=== PATIENT | male | born 1980 | race Caucasian/White ===

== ENCOUNTER 2022-08-08 12:39 | Inpatient (IN) | payer BC ==
[2022-08-08] MEDS ORDERED: HYDROMORPHONE HCL 1 MG/ML INJ ONE ×2 (13:24→15:54)
[2022-08-08] MEDS ORDERED: METHYLPREDNISOLONE 125 MG INJ ONE (13:24)
[2022-08-08] MEDS ORDERED: IPRATROPIUM BROM 0.5MG/2.5ML ONE ×2 (13:24→16:24)
[2022-08-08] MEDS ORDERED: ALBUTEROL 2.5 MG/3 ML NEB SOL ONE ×2 (13:24→16:24)
[2022-08-08] MEDS ORDERED: ONDANSETRON 4 MG/2 ML VIAL ONE (13:24)
[2022-08-08 13:33] LABS: Absolute Lymphocytes (CBC) 1.1 K/uL (0.7-4.9); Hematocrit 41.6 % (39.6-49.0); Lymphocytes % 9.2 % (15.3-44.8); MCV 92.8 fL (80-100); MPV 7.9 fL (7.6-11.3); RBC Red Blood Cell Count 4.48 M/uL (4.33-5.43)
[2022-08-08] MEDS ORDERED: ACETAMINOPHEN 325 MG TABLET ONE (13:40)
[2022-08-08 14:23] LABS: SARS-COV-2 RT PCR NEGATIVE (NEGATIVE)
[2022-08-08 14:26] LABS: Potassium 3.1 mmol/L (3.5-5.1); Troponin High Sensitivity 6.9 pg/mL (<58.9)
--- NOTE | 2022-08-08 16:05 | RAD REPORT ---
EXAM DESCRIPTION: CT - Chest For Pe Angio - 08/08/2022 3:04 pm CLINICAL HISTORY: chest pain COMPARISON: No comparisons TECHNIQUE: Dynamically enhanced 3 mm thick images of the chest were obtained during administration o f approximately 150mL Isovue 370 IV contrast. Coronal and oblique MIP reconstruction images were gene rated and reviewed. Exam utilizes a protocol to evaluate the pulmonary arterial tree. All CT scans are performed using dose optimization technique as appropriate and may include automated exposure control or mA/KV adjustment according to patient size. FINDINGS: Pulmonary arterial tree enhance but is not optimal but felt to be sufficient for diagnosti c purposes. No pulmonary emboli identified and none suspected. The aorta as imaged shows no acute or suspicious finding. No pericardial thickening or effusion. Patient has very extensive focal and confluent nodular opacities in a bibasilar distribution. There i s minimal nodular air opacification in the base of the right lower lobe and lingula of the left upper lobe. Middle lobe is moderately involved. No pleural effusion or pleural thickening. Patient has numerous mediastinal and hilar lymph nodes. No chest wall masses or abnormal axillary lym phadenopathy. IMPRESSION: No pulmonary emboli identifiable. Extensive predominantly lower lobe nodular lung parenchymal opacities with extensive mediastinal and hilar lymphadenopathy. Pattern would be consistent with sarcoidosis and needs correlation with clinic al findings. CT findings would be atypical for a community-acquired pneumonia.
--- NOTE | 2022-08-08 16:14 | EDPHYS ---
Physician Documentation [facility] Name: Raghu Rodriguez Age: 41 yrs Sex: Male : 1980 Arrival Date: 08/08/2022 Time: 12:43 Bed 18 Private MD: ED Physician Antoinette Duckworth HPI: 08/08 14:06 This 41 yrs old Male presents to ER via Ambulatory with complaints of Chest/Neck Pain sp3 when Breathing, Arm Pain. 14:06 11-year-old male with history of asthma presents to the ED with chief complaint sp3 right-sided chest pain, difficulty breathing, pain on breathing and continued wheezing. Patient states that he was in [place] proximately 1 week ago where he states he had a chest x-ray and multiple swabs done checking for COVID and flu which were negative and he was discharged home on oral Ellers and steroids. Patient is continued to not improve and according to him has gotten worse and now presents to the ED here. In particular the chest pain on the right side is what is hurting him. He also today has a fever of 101.1 he denies any abdominal pain, neck pain, headache, nausea, vomiting, diarrhea, rash, extremity pain, neurological symptoms, no sick contacts, travel history other than in local [place] or any other concerning findings on ROS at this time.. Historical: - Allergies: 12:49 No Known Allergies; hb - PMHx: 12:49 Asthma; hb - PSHx: 12:49 Pacemaker; hb - Immunization history:: Adult Immunizations up to date, Client reports receiving the 2nd dose of the Covid vaccine. - Social history:: Smoking status: Patient denies any tobacco usage or history of. ROS: 14:08 Eyes: Negative for injury, pain, redness, and discharge, ENT: Negative for injury, sp3 pain, and discharge, Neck: Negative for injury, pain, and swelling, Abdomen/GI: Negative for abdominal pain, nausea, vomiting, diarrhea, and constipation, Back: Negative for injury and pain, MS/Extremity: Negative for injury and deformity, Skin: Negative for injury, rash, and discoloration, Neuro: Negative for headache, weakness, numbness, tingling, and seizure. 14:08 All other systems are negative. Exam: 14:05 ECG was reviewed by the Attending Physician. KG demonstrates normal sinus rhythm 97 bpm sp3 with normal intervals, normal QRS, normal axis, nonspecific diffuse ST/T changes without evidence of acute ischemia. Vital Signs: 12:47 BP 124 / 65; Pulse 113; Resp 24; Temp 101.1(TE); Pulse Ox 88% on R/A; Weight 77.11 kg; hb Height 5 ft. 11 in. (180.34 cm); Pain 10/10; 13:00 BP 121 / 72; Pulse 109; Resp 20; Pulse Ox 95% on 2 lpm NC; kb3 13:00 BP 127 / 73; Pulse 83; Resp 20; Pulse Ox 96% on 1 lpm NC; kb3 14:30 BP 127 / 73; Pulse 83; Resp 20; Temp 98.9; Pulse Ox 96% on R/A; kb3 15:28 BP 117 / 59; Pulse 91; Resp 20; Pulse Ox 93% on R/A; kb3 16:00 BP 109 / 70; Pulse 79; Resp 20; Pulse Ox 95% ; kb3 18:00 BP 116 / 73; Pulse 77; Resp 20; Pulse Ox 97% ; kb3 12:47 Body Mass Index 23.71 (77.11 kg, 180.34 cm) hb MDM: 13:03 Patient medically screened. sp3 14:08 Data reviewed: vital signs, nurses notes. ED course: 41-year-old male with right-sided sp3 chest pain and asthma symptoms. He currently is wheezing along with an active cough as well. We will obtain CT scan of the chest looking for pulmonary embolism, pneumonia, other abnormality. Laboratory values and also nasal swabs will be repeated including flu, and COVID-19. As well as strep. Antibiotic regimen will be added if indicated and in the meantime we will be giving him additional duo nebs and IV steroids as needed. Pain control with Dilaudid and Zofran. Ultimate disposition pending and will be determined based on patient course and data results.. 16:12 ED course: CT demonstrates community-acquired pneumonia with extensive lymphadenopathy. sp3 With possible atypical pattern. We will start Rocephin and Zithromax and admit patient secondary to continuing right-sided chest pain, pulse oxygenation 93 to 94% on 2 L, and continued wheezing and cough. As needed nebulizers will also be utilized.. 08/08 13:05 Order name: Basic Metabolic Panel; Complete Time: 14:38 sp3 08/08 13:05 Order name: CBC with Diff; Complete Time: 14:38 sp3 08/08 13:05 Order name: NT PRO-BNP; Complete Time: 14:38 sp3 08/08 13:05 Order name: Troponin HS; Complete Time: 14:38 sp3 08/08 13:20 Order name: Blood Culture Adult (2) sp3 08/08 13:20 Order name: COVID-19/FLU A+B/RSV sp3 08/08 13:20 Order name: Strep; Complete Time: 14:38 3 08/08 13:59 Order name: Throat Culture EDMS 08/08 17:24 Order name: CBC with Automated Diff EDMS 08/08 17:24 Order name: CBC with Automated Diff EDMS 08/08 17:24 Order name: Comprehensive Metabolic Panel EDMS 08/08 17:24 Order name: Comprehensive Metabolic Panel EDMS 08/08 17:24 Order name: Lipid Profile EDMS 08/08 17:24 Order name: Lipid Profile EDMS 08/08 13:05 Order name: CT Chest For PE Angio; Complete Time: 16:10 sp3 08/08 17:24 Order name: Magnesium EDMS 08/08 17:24 Order name: Magnesium EDMS 08/08 17:24 Order name: NT PRO-BNP EDMS 08/08 17:24 Order name: NT PRO-BNP EDMS 08/08 17:24 Order name: Phosphorus EDMS 08/08 17:24 Order name: Phosphorus EDMS 08/08 13:05 Order name: EKG; Complete Time: 13:05 3 08/08 13:05 Order name: Cardiac monitoring; Complete Time: 13:27 sp3 08/08 13:05 Order name: EKG - Nurse/Tech; Complete Time: 13:27 sp3 08/08 13:05 Order name: IV Saline Lock; Complete Time: 13:27 3 08/08 13:05 Order name: Labs collected and sent; Complete Time: 13:27 sp3 08/08 13:05 Order name: O2 Per Protocol; Complete Time: 13:27 3 08/08 13:05 Order name: O2 Sat Monitoring; Complete Time: 13:27 3 08/08 17:24 Order name: Heart Healthy EDMS Administered Medications: 13:34 Drug: SOLU-Medrol (methylPrednisoLONE) 125 mg Route: IVP; Site: right antecubital; kb3 14:30 Follow up: Response: No adverse reaction kb3 13:34 Drug: Dilaudid (HYDROmorphone) 1 mg Route: IVP; Site: right antecubital; kb3 14:30 Follow up: Response: No adverse reaction; Pain is decreased kb3 13:34 Drug: Zofran (Ondansetron) 4 mg Route: IVP; Site: right antecubital; kb3 14:30 Follow up: Response: No adverse reaction; Nausea is decreased kb3 13:35 Drug: DuoNeb (albuterol 2.5 mg, ipratropium 0.5 mg) (3:1) (2.5 mg - 0.5 mg) 3 ml Route: kb3 Nebulizer; 14:30 Follow up: Response: No adverse reaction kb3 13:40 Drug: Tylenol 650 mg Route: PO; kb3 14:30 Follow up: Response: No adverse reaction; Temperature is decreased kb3 15:49 Drug: Dilaudid (HYDROmorphone) 1 mg Route: IVP; Site: left antecubital; kb3 16:30 Follow up: Response: No adverse reaction; Pain is decreased kb3 16:35 Drug: Rocephin (cefTRIAXone) 1 grams Route: IV; Rate: calculated rate; Site: left kb3 antecubital; 17:15 Follow up: Response: No adverse reaction; IV Status: Completed infusion; IV Intake: [id number] 16:35 Drug: Zithromax (azithromycin) 500 mg Route: IVPB; Infused Over: 1 hrs; Site: left kb3 antecubital; 17:50 Follow up: Response: No adverse reaction; IV Status: Completed infusion; IV Intake: kb3 250ml 16:35 Drug: DuoNeb (albuterol 2.5 mg, ipratropium 0.5 mg) (3:1) (2.5 mg - 0.5 mg) 3 ml Route: kb3 Nebulizer; 17:30 Follow up: Response: No adverse reaction kb3 Disposition Summary: 08/08/22 16:14 Hospitalization Ordered Hospitalization Status: Inpatient Admission sp3 Provider: Tameka Ascencio sp3 [facility] sp3 Condition: Stable sp3 Problem: new sp3 Symptoms: are unchanged sp3 Bed/Room Type: Standard sp3 Room Assignment: 223(08/08/22 17:40) eb Diagnosis - Pneumonia due to other specified bacteria sp3 Forms: - Medication Reconciliation Form sp3 - SBAR form sp3 Signatures: Dispatcher [employer] EDNadya Lopez RN RN Dalia Storey Setul, MD MD sp3 Jennifer Kellogg RN RN kb3 Corrections: (The following items were deleted from the chart) 17:40 16:14 sp3 eb
--- NOTE | 2022-08-08 16:14 | ER ---
Nurse's Notes [facility] Name: Raghu Rodriguez Age: 41 yrs Sex: Male : 1980 Arrival Date: 08/08/2022 Time: 12:43 Bed 18 Private MD: Diagnosis: Pneumonia due to other specified bacteria Presentation: 08/08 12:47 Chief complaint: Worsening SOB, cough, pain with breathing and right sided neck pain hb that radiates to right chest and arm x 1 week. Coronavirus screen: Client presents with at least one sign or symptom that may indicate coronavirus-19. Standard/surgical mask placed on the client. Provider contacted for isolation considerations. Ebola Screen: No symptoms or risks identified at this time. Initial Sepsis Screen: Does the patient meet any 2 criteria? RR > 20 per min. Temp <36.0*C (96.8*F)) or > 38.3*C (100.9*F). HR > 90 bpm. Yes Does the patient have a suspected source of infection? No. Patient's initial sepsis screen is negative. Risk Assessment: Do you want to hurt yourself or someone else? Patient reports no desire to harm self or others. Onset of symptoms was August 02, 2022. 12:47 Method Of Arrival: Ambulatory hb 12:47 Acuity: JAYME 2 hb Historical: - Allergies: 12:49 No Known Allergies; hb - PMHx: 12:49 Asthma; hb - PSHx: 12:49 Pacemaker; hb - Immunization history:: Adult Immunizations up to date, Client reports receiving the 2nd dose of the Covid vaccine. - Social history:: Smoking status: Patient denies any tobacco usage or history of. Screenin:[address] [facility] ED Fall Risk Assessment (Adult) Score/Fall Risk Level 0 - 2 = Low Risk hb Oriented to surroundings, Maintained a safe environment, Assessed \T\ reinforced patient's understanding of fall precautions. Abuse screen: Denies threats or abuse. Denies injuries from another. Nutritional screening: No deficits noted. Tuberculosis screening: No symptoms or risk factors identified. Fall Risk Total Barajas Fall Scale indicates No Risk (0-24 pts). Assessment: 12:53 Reassessment: CODE SEPSIS CALLED. hb 14:00 Reassessment: Patient appears in no apparent distress at this time. Patient and/or kb3 family updated on plan of care and expected duration. Pain level reassessed. Pain: Complains of pain in chest Pain does not radiate. Pain currently is 2 out of 10 on a pain scale. Quality of pain is described as dull, with cough. Respiratory: Airway is patent Respiratory effort is even, unlabored, Breath sounds are clear bilaterally. Vital Signs: 12:47 BP 124 / 65; Pulse 113; Resp 24; Temp 101.1(TE); Pulse Ox 88% on R/A; Weight 77.11 kg; hb Height 5 ft. 11 in. (180.34 cm); Pain 10/10; 13:00 BP 121 / 72; Pulse 109; Resp 20; Pulse Ox 95% on 2 lpm NC; kb3 13:00 BP 127 / 73; Pulse 83; Resp 20; Pulse Ox 96% on 1 lpm NC; kb3 14:30 BP 127 / 73; Pulse 83; Resp 20; Temp 98.9; Pulse Ox 96% on R/A; kb3 15:28 BP 117 / 59; Pulse 91; Resp 20; Pulse Ox 93% on R/A; kb3 16:00 BP 109 / 70; Pulse 79; Resp 20; Pulse Ox 95% ; kb3 18:00 BP 116 / 73; Pulse 77; Resp 20; Pulse Ox 97% ; kb3 12:47 Body Mass Index 23.71 (77.11 kg, 180.34 cm) hb ED Course: 12:43 Patient arrived in ED. rg4 12:49 Triage completed. hb 12:49 Arm band placed on. hb 12:52 Antoinette Duckworth MD is Attending Physician. sp3 12:52 Jennifer Kellogg, RN is Primary Nurse. kb3 12:58 Patient has correct armband on for positive identification. hb 13:20 Initial lab(s) drawn, by me, sent to lab. First set of blood cultures drawn by me, EKG mm9 done, by ED staff, reviewed by Antoinette Duckworth MD COVID swab sent to lab. Flu and/or RSV swab sent to lab. Strep swab sent to lab. Inserted saline lock: 18 gauge in right antecubital area, using aseptic technique. Blood collected. 13:27 Blood Culture Adult (2) Sent. mm9 13:27 Basic Metabolic Panel Sent. mm9 13:27 CBC with Diff Sent. mm9 13:27 NT PRO-BNP Sent. mm9 13:28 Placed in gown. Bed in low position. Call light in reach. Side rails up X 1. Pillow mm9 given. district branch manager on. Pulse ox on. NIBP on. 13:28 Troponin HS Sent. mm9 14:[address] kb3 14:55 Inserted saline lock: 20 gauge in left antecubital area, using aseptic technique. IV kb3 discontinued, intact, bleeding controlled, 18G IV removed, infiltrated. 15:06 CT Chest For PE Angio In Process Unspecified. EDMS 15:[address]. kb3 16:13 Tameka Ascencio MD is Hospitalizing Provider. sp3 18:41 No provider procedures requiring assistance completed. kb3 Administered Medications: 13:34 Drug: SOLU-Medrol (methylPrednisoLONE) 125 mg Route: IVP; Site: right antecubital; kb3 14:30 Follow up: Response: No adverse reaction kb3 13:34 Drug: Dilaudid (HYDROmorphone) 1 mg Route: IVP; Site: right antecubital; kb3 14:30 Follow up: Response: No adverse reaction; Pain is decreased kb3 13:34 Drug: Zofran (Ondansetron) 4 mg Route: IVP; Site: right antecubital; kb3 14:30 Follow up: Response: No adverse reaction; Nausea is decreased kb3 13:35 Drug: DuoNeb (albuterol 2.5 mg, ipratropium 0.5 mg) (3:1) (2.5 mg - 0.5 mg) 3 ml Route: kb3 Nebulizer; 14:30 Follow up: Response: No adverse reaction kb3 13:40 Drug: Tylenol 650 mg Route: PO; kb3 14:30 Follow up: Response: No adverse reaction; Temperature is decreased kb3 15:49 Drug: Dilaudid (HYDROmorphone) 1 mg Route: IVP; Site: left antecubital; kb3 16:30 Follow up: Response: No adverse reaction; Pain is decreased kb3 16:35 Drug: Rocephin (cefTRIAXone) 1 grams Route: IV; Rate: calculated rate; Site: left kb3 antecubital; 17:15 Follow up: Response: No adverse reaction; IV Status: Completed infusion; IV Intake: [id number] 16:35 Drug: Zithromax (azithromycin) 500 mg Route: IVPB; Infused Over: 1 hrs; Site: left kb3 antecubital; 17:50 Follow up: Response: No adverse reaction; IV Status: Completed infusion; IV Intake: kb3 250ml 16:35 Drug: DuoNeb (albuterol 2.5 mg, ipratropium 0.5 mg) (3:1) (2.5 mg - 0.5 mg) 3 ml Route: kb3 Nebulizer; 17:30 Follow up: Response: No adverse reaction kb3 Medication: 12:58 VIS not applicable for this client. hb Intake: 17:15 IV: 50ml; Total: 50ml. kb3 17:50 IV: 250ml; Total: 300ml. kb3 Outcome: 16:14 Decision to Hospitalize by Provider. sp3 18:39 Admitted to Tele accompanied by tech, via stretcher, with oxygen. kb3 18:39 Admitted to Tele accompanied by tech, via stretcher, with oxygen, Report called to Zeina BROWER 18:39 Condition: stable 18:39 Condition: stable 18:39 Instructed on the need for admit. 18:55 Patient left the ED. kb3 Signatures: Dispatcher [employer] EDMS Nadya Watson RN RN Krys Kyle rg4 Antoinette Duckworth MD MD sp3 Jennifer Kellogg RN RN kb3 Karen Hair mm9 Corrections: (The following items were deleted from the chart) 12:57 12:47 BP 124 / 65; Pulse 113bpm; Resp 24bpm; Pulse Ox 92% RA; Temp 101.1F Temporal; hb 77.11 kg; Height 5 ft. 11 in.; BMI: 23.7; Pain 10/10; hb 12:58 12:55 Reassessment: CODE SEPSIS CALLED hb hb 14:57 14:44 General: kb3 kb3
[2022-08-08] MEDS ORDERED: CEFTRIAXONE 1000 MG/VIAL ONE (16:23)
[2022-08-08] MEDS ORDERED: NA CHLORIDE 0.9% 250 ML ONE (16:24)
[2022-08-08] MEDS ORDERED: NA CHLORIDE 0.9% 50 ML IV ONE (16:24)
[2022-08-08] MEDS ORDERED: AZITHROMYCIN 500 MG INJ IVPB ONE (16:24)
[2022-08-08] MEDS ORDERED: ONDANSETRON 4 MG/2 ML VIAL IV PRN (17:19)
[2022-08-08] MEDS ORDERED: ALBUTEROL 2.5 MG/3 ML NEB SOL NEB PRN (17:19)
[2022-08-08] MEDS ORDERED: ACETAMINOPHEN 500 MG TAB PO PRN (17:19)
[2022-08-08] MEDS: NA CHLORIDE 0.9% 1,000 ML IV SCH (20:48)
[2022-08-08] MEDS: Levofloxacin 750mg IV 750 MG/150 ML BAG IV SCH (20:52)
[2022-08-08] MEDS ORDERED: HYDROMORPHONE HCL 0.5 MG/0.5 ML INJ IV ONE (22:22)
[2022-08-08 23:42] VITALS: BMI 23.7
[2022-08-09 04:30] LABS: Absolute Lymphocytes (CBC) 0.5 K/uL (0.7-4.9); Lymphocytes % 5.9 % (15.3-44.8); MCV 94.1 fL (80-100); RBC Red Blood Cell Count 4.14 M/uL (4.33-5.43)
[2022-08-09 04:44] LABS: Bilirubin Total 0.2 mg/dL (0.2-1.0); Magnesium 2.5 mg/dL (1.6-2.4); Phosphorus 2.6 mg/dL (2.5-4.9); Potassium 4.4 mmol/L (3.5-5.1); Protein, Total 7.3 g/dL (6.4-8.2)
[2022-08-09] MEDS ORDERED: METHYLPREDNISOLONE 40 MG INJ IV ONE (06:32)
--- NOTE | 2022-08-09 07:49 | P.HP ---
Certification for Inpatient Patient admitted to: Inpatient With expected LOS: >2 Midnights Patient will require the following post-hospital care: None Practitioner: I am a practitioner with admitting privileges, knowledge of patient current condition, hospital course, and medical plan of care. Services: Services provided to patient in accordance with Admission requirements found in Title 42 Section 412.3 of the Code of Federal Regulations Patient History Date of Service: 08/08/22 Reason for admission: Pleuritic chest pain; influenza pneumonia; history of asthma History of Present Illness: Patient is a 41-year-old gentleman who presents to the hospital with shortness of breath. Patient has a history of asthma and has been hospitalized on 4 dif ferent occasions with pneumonia. Patient states he has been feeling poorly for the last week. He went to the emergency room in [place], [place] where he is from and he was told that there was no significant abnormalities on his chest x-ray. He was discharged home with antibiotics and cough medication. Patient states that over the last few days he started having some pain when he takes deep breaths. He came into the emergency room here as he was visiting his significant other. Imaging study revealed bilateral infiltrates with lymphadenopathy. There was some concern for sarcoidosis. Patient had been admitted to the hospital and was in his room upstairs when I spoke with him regarding the findings. He said he has had multiple images in the past but none of these have shown any significant abnormality. He has had 4 hospitalizations for pneumonia but has never been told he may have sarcoidosis. At this time he will be admitted to the hospital and treated for his influenza. Continue on IV steroids and neb treatments along with antiviral therapy and antibiotics. Allergies No Known Allergies Allergy (Verified 08/08/22 21:03) Home Medications: NK [No Home Meds] 08/08/22 - Past Medical/Surgical History Has patient received pneumonia vaccine in the past: No Diabetic: No -: ASTHMA -: PACEMAKER -: PACEMAKER 2002 - Family History Mother Medical History: Lung disease, Diabetes - Social History Smoking Status: Never smoker Alcohol use: No CD- Drugs: No Caffeine use: No Place of Residence: Home Review of Systems 10-point ROS is otherwise unremarkable Physical Examination - Vital Signs Temperature: 97.6 F Blood Pressure: 97/57 Pulse: 67 Respirations: 18 Pulse Ox (%): 96 - Physical Exam General: Alert, In no apparent distress, Oriented x3 HEENT: Atraumatic, PERRLA, Mucous membr. moist/pink, EOMI, Sclerae nonicteric Neck: Supple, 2+ carotid pulse no bruit, No LAD, Without JVD or thyroid abnormality Respiratory: Diminished, Expiratory wheezes Cardiovascular: Regular rate/rhythm, Normal S1 S2, No murmurs Gastrointestinal: Normal bowel sounds, Soft and benign, Non-distended, No tenderness Musculoskeletal: No clubbing, No swelling, No tenderness Integumentary: No rashes Neurological: Normal gait, Normal speech, Normal strength at 5/5 x4 extr, Normal tone, Normal affect Lymphatics: No axilla or inguinal lymphadenopathy - Studies Laboratory Data (last 24 hrs) 08/08/22 13:20: WBC 11.70 H, Hgb 14.1, Hct 41.6, Plt Count 211 08/08/22 13:20: Sodium 134 L, Potassium 3.1 L, BUN 17, Creatinine 1.23, Glucose 90 Microbiology Data (last 24 hrs): 08/08/22 13:36 Throat Group A Streptococcus Rapid Screen - Final Assessment & Plan - Problems (Diagnosis) (1) Influenza with pneumonia Current Visit: Yes Status: Acute (2) Pleuritic chest pain Current Visit: Yes Status: Acute (3) History of permanent cardiac pacemaker placement Current Visit: Yes Status: Acute - Plan 1. Continue with IV antibiotics & antiviral therapy 2. Awaiting sputum and blood culture 3. Repeat chest x-ray 4. CT scan of the chest reviewed 5. Respiratory isolation 6. Continue with nebs as needed 7. O2 per protocol 8. Continue with gentle hydration 9. Repeat labs including CBC and renal function in a.m. 10. IV steroids 11. GI and DVT prophylaxis Discharge Plan: Home Plan to discharge in: Greater than 2 days - Advance Directives Does patient have a Living Will: No Does patient have a Durable POA for Healthcare: No - Code Status/Comfort Care Code Status Assessed: Yes Code Status: Full Code Critical Care: No Time Spent Managing PTS Care (In Minutes): 45
[2022-08-09] MEDS ORDERED: KETOROLAC 30 MG/ML INJ IV ONE ×2 (08:30→19:00)
[2022-08-09] MEDS: MORPHINE 2 MG/ML SYR IV PRN ×3 (08:41→20:05)
[2022-08-09] MEDS: OSELTAMIVIR 75 MG CAP PO SCH ×2 (09:21→20:05)
[2022-08-09] MEDS: ENOXAPARIN 40 MG/0.4 ML SQ SCH (09:21)
[2022-08-09] MEDS: NA CHLORIDE 0.9% 1,000 ML IV SCH ×2 (09:29→23:45)
[2022-08-09] MEDS ORDERED: HYDROMORPHONE HCL 0.5 MG/0.5 ML INJ IV ONE ×2 (11:25→22:39)
[2022-08-09] MEDS: METHYLPREDNISOLONE 40 MG INJ IV SCH ×3 (11:29→23:32)
[2022-08-09] MEDS ORDERED: ALBUTEROL 2.5 MG/3 ML NEB SOL NEB PRN (14:00)
[2022-08-09] MEDS: Levofloxacin 750mg IV 750 MG/150 ML BAG IV SCH (17:14)
[2022-08-09 21:50] VITALS: O2SAT 96
--- NOTE | 2022-08-09 21:55 | P.PN ---
Subjective Date of Service: 08/09/22 Chief Complaint: Pleuritic chest pain; influenza pneumonia; history of asthma No acute events overnight. He reports bilateral axillary pain with deep inspiration. He reports persistent shortness of breath. He denies chest pain or palpitations. Review of Systems 10-point ROS is otherwise unremarkable Respiratory: Shortness of Breath, Pleuritic Pain Physical Examination - Vital Signs Temperature: 97.9 F Blood Pressure: 127/64 Pulse: 74 Respirations: 18 Pulse Ox (%): 95 - Physical Exam General: Alert, In no apparent distress, Oriented x3 HEENT: Atraumatic, EOMI, Sclerae nonicteric Neck: JVD not distended Respiratory: Diminished, Rhonchi/gurgles Cardiovascular: No edema, Regular rate/rhythm, Normal S1 S2, No gallops, No rubs, No murmurs Gastrointestinal: Normal bowel sounds, Soft and benign, Non-distended, No tenderness, No rebound, No guarding Musculoskeletal: No clubbing Integumentary: No rashes Neurological: Normal speech, Cranial nerves 3-12 intact, Normal affect - Studies Laboratory Data (last 24 hrs) 08/09/22 03:40: Sodium 134 L, Potassium 4.4 D, BUN 17, Creatinine 1.10, Glucose 156 H, Phosphorus 2.6, Magnesium 2.5 H, Total Bilirubin 0.2, AST 12 L, ALT 29, Alkaline Phosphatase 50, Triglycerides 42, Cholesterol 106, HDL Cholesterol 34 L, Cholesterol/HDL Ratio 3.12 08/09/22 03:40: WBC 8.50, Hgb 13.1 L, Hct 39.0 L, Plt Count 206 Assessment And Plan - Plan # Viral Sepsis secondary to Influenza A Infection He initially met sepsis criteria based on temperature >100.9 F, HR >90 bpm, and respiratory rate >20 breaths/min. The suspected source is viral. - Sepsis order set was initiated - Initial lactate was requested - Blood cultures x 2 were obtained - Empiric antimicrobials started: Oseltamivir + Levofloxacin (discontinue levofloxacin given no bacterial source of infection at this time) - CT chest = "no pulmonary emboli identifiable. Extensive predominantly lower lobe nodular lung parenchymal opacities with extensive mediastinal and hilar lymphadenopathy. Pattern would be consistent with sarcoidosis and needs correlation with clinical findings. CT findings would be atypical for a community-acquired pneumonia." - In regards to fluids, 30 mL/kg bolus not given due to SBP > 90 mmHg and MAP >65 # Extensive Mediastinal/Hilar Lymphadenopathy # Asthma - Per Radiology report, this is concerning for possible sarcoidosis. - We do not currently have Pulmonology availability at our facility - I would advise transfer to [facility] for potential bronchoscopy +/- biopsy - I have completed doc-to-doc with Dr. Cross ([facility] Hospitalist), who has accepted him for transfer - Continue empiric methylprednisolone # Symptomatic Bradycardia s/p PPM Vel Apple M.D.
[2022-08-10] MEDS: MORPHINE 2 MG/ML SYR IV PRN ×3 (04:10→12:51)
[2022-08-10] MEDS: METHYLPREDNISOLONE 40 MG INJ IV SCH ×2 (05:19→11:34)
[2022-08-10 06:49] LABS: Potassium 4.5 mmol/L (3.5-5.1)
[2022-08-10] MEDS: OSELTAMIVIR 75 MG CAP PO SCH (09:07)
[2022-08-10] MEDS: ENOXAPARIN 40 MG/0.4 ML SQ SCH (09:08)
[2022-08-10] MEDS: NA CHLORIDE 0.9% 1,000 ML IV SCH (11:34)
[2022-08-10 12:17] VITALS: BP 144/70; TEMP 98
--- NOTE | 2022-08-10 14:05 | P.DS ---
Admission Date: 08/09/22 Discharge Date: 08/10/22 Disposition: AMA-LEFT AGAINST MEDICAL ADVIC Discharge Condition: FAIR Reason for Admission: Pleuritic chest pain; influenza pneumonia; history of asthma Hospital Course: DIAGNOSES: # Viral Sepsis secondary to Influenza A Infection # Extensive Mediastinal/Hilar Lymphadenopathy # Asthma # Symptomatic Bradycardia s/p PPM HOSPITAL COURSE: Mr. Raghu Rodriguez is a 41 year old male with a past medical history significant for asthma and symptomatic bradycardia s/p PPM who was admitted to the [facility] [place] on 08/08/2022 for shortness of breath. He was admitted to the Medicine service. Upon further evaluation, he was noted to have viral sepsis secondary to an Influenza A infection. His CT chest would reveal extensive mediastinal and hilar lymphadenopathy. It was recommended that he be transferred to [facility] for a Pulmonary evaluation and possibly bronchoscopy +/- biopsies. Doc-to-doc was completed with [facility] Hospitalist (Dr. Cross); however, he was unable to be transferred yesterday due to bed capacity. I spoke with the transfer center and the tentative plan was for transfer today. I was called by the beside RN that he would like to leave AGAINST MEDICAL ADVICE due to the duration of the transfer process. I discussed the risks and benefits regarding a premature discharge. I explained that his work-up is incomplete, and we cannot exclude cancer (i.e. lung cancer, lymphoma, etc.) without a Pulmonary evaluation and biopsies. He was advised that it is certainly possible that the lymphadenopathy may represent a malignancy, and if left untreated, it could metastasize and lead to his . He stated that he accepts this risk and would like to be discharged despite these risks. He demonstrated medical decision making capacity. He states that he lives in [place], [place] and will follow-up with his local physicians. I have provided him with the contact information for Dr. Roque should he decide to follow this up locally. Mary Beyer RN and Mignon Harrison RN were present for this discussion. He was discharged with instructions to schedule follow-up appointments with his PCP and with Pulmonary Medicine. He was provided a prescription for oseltamivir. He was given the opportunity to ask questions and reported no further questions. Furthermore, all questions were answered to the best of my ability. A copy of this discharge summary will be sent to the above providers to facilitate continuity of care. Today, I personally spent 35 minutes on his case, of which greater than 50% of the time was spent in patient education, counseling, and coordination of care as described above. - Physical Exam General: Alert, In no apparent distress, Oriented x3 HEENT: Atraumatic, EOMI, Sclerae nonicteric Neck: JVD not distended Respiratory: Diminished, Bibasilar rhonchi, improved from yesterday Cardiovascular: No edema, Regular rate/rhythm, Normal S1 S2, No gallops, No rubs, No murmurs Gastrointestinal: Normal bowel sounds, Soft and benign, Non-distended, No tenderness, No rebound, No guarding Musculoskeletal: No clubbing Integumentary: No rashes Neurological: Normal speech, Cranial nerves 3-12 intact, Normal affect Vital Signs/Physical Exam: Temp Pulse Resp BP Pulse Ox 98.0 F 97 H 17 144/70 H 94 08/10/22 12:00 08/10/22 12:00 08/10/22 12:51 08/10/22 12:00 08/10/22 12:51 Laboratory Data at Discharge: WBC 8.50 K/uL (4.3-10.9) 08/09/22 03:40 Hgb 13.1 g/dL (13.6-17.9) L 08/09/22 03:40 Hct 39.0 % (39.6-49.0) L 08/09/22 03:40 Plt Count 206 K/uL (152-406) 08/09/22 03:40 Sodium 137 mmol/L (136-145) 08/10/22 06:28 Potassium 4.5 mmol/L (3.5-5.1) 08/10/22 06:28 BUN 31 mg/dL (7-18) H 08/10/22 06:28 Creatinine 1.07 mg/dL (0.70-1.30) 08/10/22 06:28 Glucose 128 mg/dL (74-106) H 08/10/22 06:28 Phosphorus 2.6 mg/dL (2.5-4.9) 08/09/22 03:40 Magnesium 2.5 mg/dL (1.6-2.4) H 08/09/22 03:40 Total Bilirubin 0.2 mg/dL (0.2-1.0) 08/09/22 03:40 AST 12 U/L (15-37) L 08/09/22 03:40 ALT 29 U/L (16-61) 08/09/22 03:40 Alkaline Phosphatase 50 U/L (45-117) 08/09/22 03:40 Triglycerides 42 mg/dL (<150) 08/09/22 03:40 Cholesterol 106 mg/dL (<200) 08/09/22 03:40 HDL Cholesterol 34 mg/dL (40-60) L 08/09/22 03:40 Cholesterol/HDL Ratio 3.12 08/09/22 03:40 Home Medications: RX: Oseltamivir [Tamiflu*] 75 mg PO BID 3 Days #7 cap 08/10/22 New Medications: RX: Oseltamivir [Tamiflu*] 75 mg PO BID 3 Days #7 cap Physician Discharge Instructions: 1. Please call and schedule a follow-up appointment with your PCP in 3-5 days 2. Please call and schedule a follow-up appointment with Pulmonary Medicine (Dr. Roque) as soon as possible - There are multiple enlarged lymph nodes on your chest scan and we cannot exclude the possibility of cancer - I highly recommend you schedule a Pulmonology follow-up as soon as possible for further evaluation Diet: Regular Activity: Ad shailesh Followup: NONE,NONE [Primary Care Provider] - Cam Roque MD [ACTIVE - CAN ADMIT] - Time spent managing pt's care (in minutes): 35
--- NOTE | 2022-08-10 15:19 | EKG ---
Test Date: 2022-08-08 Test Time: 13:03:03 Filtration Operator: DENNIS MEASUREMENT RESULTS: Intervals: Rate: 94 VA: 172 QRSD: 88 QT: 328 QTc: 410 [place]: P: 75 VA: 172 QRS: 73 T: 41 INTERPRETIVE STATEMENTS: Normal sinus rhythm Minimal voltage criteria for LVH, may be normal variant T wave abnormality, consider lateral ischemia Abnormal ECG Compared to ECG 08/08/2022 13:02:25 Left ventricular hypertrophy now present T-wave abnormality still present Possible ischemia still present Electronically Signed On 08-10-22 15:16:38 [employer] by Anjel Bryant
== END 2022-08-10 14:15 | disposition left against medical advice (07) | DRG 193 ==
LOC: ER 12:39 → ERHOLD 17:19 → 2ND 18:44 → OBSVTOIN 08-09 09:36
PROVIDERS: ADMIT Hospitalist; ATTEND Internal Medicine
DX: J10.00 Influenza due to other identified influenza virus with unspecified type of pneumonia (principal); J96.01 Acute respiratory failure with hypoxia; J45.909 Unspecified asthma, uncomplicated; R59.1 Generalized enlarged lymph nodes; Z95.0 Presence of cardiac pacemaker; Z53.29 Procedure and treatment not carried out because of patient's decision for other reasons; Z79.899 Other long term (current) drug therapy; Z20.822 Contact with and (suspected) exposure to COVID-19
CPT/HCPCS: 0241U; 36415; 71275; 80048; 80053; 80061; 83605; 83735; 83880; 84100; 84484; 85025; 87040; 87070; 87081; 93005; 94640; 94760; 99285; G0378; J0456; J1170; J1650; J2270; J2405; J2920; J2930; J7030; J7050; J7613; J7644; Q9967

== ENCOUNTER 2023-07-04 16:03 | Emergency (ER) | payer OTHER ==
--- OUTSIDE RECORDS SUMMARY | 2023-07-04 16:06 | XMS REPORT | Continuity of Care Document ---
:1980 Author Organization [facility] t Address [address] [facility] [address] [place] [address] Care Team Providers Name Role Phone DINAH MARQUEZ Attending Clinician Unavailable ILANA KINNEY Attending Clinician Unavailable CHASITY PASCUAL Attending Clinician Unavailable JAYDEN ANDUJAR Attending Clinician Unavailable LEANDRA MCGUIRE Attending Clinician Unavailable RASHEED FUENTES Attending Clinician Unavailable DINAH MARQUEZ Admitting Clinician Unavailable JAYDEN ANDUJAR Admitting Clinician Unavailable SB LEWIS Admitting Clinician Unavailable Payers Payer Name Policy Type Policy Number Effective Date Expiration Date S ource BCBS PPO POS EPO [id number] 2022 00:00:00 CHOICE Problems This patient has no known problems. Allergies, Adverse Reactions, Alerts Allergy Allergy Status Severity Reaction(s) Onset Inactive Treating Comm ents Source Name Type Date Date Clinician CIPROFLO Allergy Active [facility] PENICILL Allergy Active High [facility] NO KNOWN Allergy Active [facility] Medications This patient has no known medications. Vital Signs Vital Name Observation Time Observation Value Comments Source HEIGHT 2022-10-19 10:13:00 180.3 cm WEIGHT 2022-10-19 10:13:00 74.844 kg HEIGHT 2022-10-19 10:13:00 180.3 cm WEIGHT 2022-10-19 10:13:00 74.844 kg HEIGHT 2022-09-22 12:17:00 180.3 cm WEIGHT 2022-09-22 12:17:00 68.72 kg HEIGHT 2022-09-21 08:31:00 180.3 cm WEIGHT 2022-09-21 08:31:00 73.483 kg HEIGHT 2022-09-22 12:17:00 180.3 cm WEIGHT 2022-09-22 12:17:00 68.72 kg HEIGHT 2022-09-21 08:31:00 180.3 cm WEIGHT 2022-09-21 08:31:00 73.483 kg HEIGHT 2022-08-10 21:43:00 180.3 cm WEIGHT 2022-08-10 21:43:00 77.111 kg HEIGHT 2022-08-10 21:43:00 180.3 cm WEIGHT 2022-08-10 21:43:00 77.111 kg Procedures This patient has no known procedures. Encounters Start End Encounter Admission Attending Care Care Encounter Source Date/Time Date/Time Type Type Clinicians Facility Department ID 2022-08-09 Inpatient UR [facility] Pulmonology [id number] [facility] 08:54:38 [facility] 2023-06-22 2023-06-22 Outpatient S[facility] Sea 10:30:07 10:30:07 [id number] F Willis 2023-06-14 2023-06-14 Outpatient SFA [facility] [id number] [facility] 10:56:49 10:56:49 [id number] F Willis 2022-10-19 2022-10-19 Emergency ER [facility] Emergency 20 [id number] SLE 10:20:00 19:12:00 CHASITY 2022-10-18 2022-10-18 Outpatient EL SAFI, SLEH [facility] [id number] [facility] 12:47:31 23:59:00 [facility] 2022-09-22 2022-09-22 Outpatient EL SAFI, SLE Surgery [id number] [facility] 11:12:00 17:40:[facility] 2022-09-21 2022-09-21 Outpatient EL SLEH SLE [id number] SLE 08:47:03 23:59:00 2022-08-10 2022-08-12 Outpatient ER [facility] Emergency [id number] [facility] 21:47:00 15:07:00 RASHEED Results Test Description Test Time Test Comments Results Result Comments Source AFB CULTURE + SMEAR (NON-SPUTUM) 2022-11-10 09:53:43 Test Item Value Reference Range Interpretation Comme nts CULTURE (BEAKER) (test code = 1095) No acid-fast bacilli isolated i n 42 days AFB SMEAR (BEAKER) (test code = 994) No acid fast bacilli seen BLOOD [id number] 14:01:28 Test Item Value Reference Range Interpretation Comments CULTURE (BEAKER) (test No growth in 5 days code = 1095) BLOOD [id number] 14:01:28 Test Item Value Reference Range Interpretation Comments CULTURE (BEAKER) (test No growth in 5 days code = 1095) FUNGUS CULTURE + [id number] 16:23:57 Test Item Value Reference Range Interpretation Comments CULTURE (BEAKER) (test No fungus isolated in code = 1095) 28 days FUNGUS SMEAR (BEAKER) No fungi seen (test code = 1406) BLOOD GAS, [id number] 16:46:24 Test Item Value Reference Range Interpretation Comments PH VENOUS (BEAKER) (test code = 7.47 7.32-7.42 H 701) PCO2 VENOUS (BEAKER) (test code = 34 mm Hg 41-51 L 755) PO2 VENOUS (BEAKER) (test code = 79 mm Hg 25-40 H 702) O2 SATURATION VENOUS (BEAKER) 96.4 % 40.0-70.0 H (test code = 703) HCO3 VENOUS (BEAKER) (test code = 24 mmol/L 21-29 705) BASE EXCESS VENOUS (BEAKER) (test 1.0 mmol/L -2.0-3.0 code = 704) PATIENT TEMPERATURE (BEAKER) (test 37.0 code = 1818) FIO2 (BEAKER) (test code = 1819) 21.0 HIGH SENSITIVITY TROPONIN [id number] 14:53:39 Test Item Value Reference Range Interpretation Comments HIGH SENSITIVITY TROPONIN I (test < pg/ml <=35 code = 6483992) Bridge Inspector ID - BSThe FIRE CONTROLMAN STAT High Sensitivity Troponin-I results should be used in conjunctionwith other diagnostic information such as ECG, clinical observations and information, and patient symptoms to aid in the diagnosis of ME.RAD, CHEST, 2 [id number] 13:41:00Reason for exam:->SHORTNESS OF BREATHReason for exam:->WOUND CHECK [facility] 1980 Sex: MFINAL REPORT RAD, CHEST, 2 VIEWS CLINICAL HISTORY: SHORTNESS OF BREATHWOUND CHECKTECHNIQUE: 2 views of the chest COMPARISON: September 22, 2022 IMPRESSION:Left chest pacer device. Scattered reticular nodular opacities possibly atypical infection present. No focal lung consolidation. No pleural effusion. No pneumothorax. The cardiomediastinal silhouette is within normal limits. The osseous structures appear intact. Signed: Thomas Schilling MDReport Verified Date/Time: 10/19/2022 13:41:57 LACTIC ACID, [id number] 13:16:22 Test Item Value Reference Range Interpretation Comments LACTATE BLOOD VENOUS 0.70 mmol/L 0.50-2.20 Specime n slightly (2) (BEAKER) (test hemolyzed code = 2872) Bridge Inspector ID - FSEBLOOD GAS, [id number] 13:07:16 Test Item Value Reference Range Interpretation Comments PH VENOUS (BEAKER) (test code = 7.48 7.32-7.42 H 701) PCO2 VENOUS (BEAKER) (test code = 34 mm Hg 41-51 L 755) PO2 VENOUS (BEAKER) (test code = 42 mm Hg 25-40 H 702) O2 SATURATION VENOUS (BEAKER) 81.4 % 40.0-70.0 H (test code = 703) HCO3 VENOUS (BEAKER) (test code = 25 mmol/L 21-29 705) BASE EXCESS VENOUS (BEAKER) (test 1.8 mmol/L -2.0-3.0 code = 704) PATIENT TEMPERATURE (BEAKER) (test 37.0 code = 1818) FIO2 (BEAKER) (test code = 1819) 21.0 [id number] 12:53:12 Test Item Value Reference Range Interpretation Comments PARTIAL THROMBOPLASTIN TIME 35.1 seconds 22.5-36.0 (BEAKER) (test code = 760) PROTHROMBIN TIME/[id number] 12:51:35 Test Item Value Reference Range Interpretation Comments PROTIME (BEAKER) (test code = 13.1 seconds 11.9-14.2 759) INR (BEAKER) (test code = 370) 1.06 <=5.90 RECOMMENDED COUMADIN/WARFARIN INR THERAPY RANGESSTANDARD DOSE: 2.0 - 3.0 Includes: PROPHYLAXIS for venous thrombosis, systemic embolization; TREATMENT for venous thrombosis and/or pulmonary embolus.HIGH RISK: Target INR is 2.5-3.5 for patients with mechanical heart valves.[id number] 12:01:17 Test Item Value Reference Range Interpretation Comments MAGNESIUM (BEAKER) 2.1 mg/dL 1.6-2.6 Specimen markedly (test code = 627) hemolyzed Bridge Inspector ID - FSEBASIC METABOLIC [id number] 12:01:17 Test Item Value Reference Range Interpretation Comments SODIUM (BEAKER) 138 meq/L 136-145 (test code = 381) POTASSIUM 5.5 meq/L 3.5-5.1 H Specimen marked ly (BEAKER) (test hemolyzed code = 379) CHLORIDE (BEAKER) 105 meq/L 98-107 (test code = 382) CO2 (BEAKER) 24 meq/L 22-29 (test code = 355) BLOOD UREA 18 mg/dL 7-21 NITROGEN (BEAKER) (test code = 354) CREATININE 1.19 mg/dL 0.57-1.25 Specimen marked ly (BEAKER) (test hemolyzed code = 358) GLUCOSE RANDOM 85 mg/dL 70-105 (BEAKER) (test code = 652) CALCIUM (BEAKER) 9.8 mg/dL 8.4-10.2 (test code = 697) EGFR (BEAKER) 80 Interpretatio n of eGFR (test code = mL/min/1.73 values Stage De scription 1092) sq m Result G1 Mary l or high >=90 G2 Mildly decreased 60-89 G3a Mild ly to moderately 45-5 9 G3b Moderately to s everely 30-44 G4 Severl y decreased 15-29 G5 Kidney failure <15Reported eGF R is based on the CKD-EPI 2020 equation that d oes not use a race coefficientEsti mated GFR is not as accur ate as Creatinine Shelly cleopatra in predicting glom erular filtration rate . Estimated GFR is not appl icable for dialysis patien ts Bridge Inspector ID - FSEPT/[id number] 11:54:21 Test Item Value Reference Range Interpretation Comments PROTIME (BEAKER) (test code = 13.3 seconds 11.9-14.2 759) INR (BEAKER) (test code = 370) 1.08 <=5.90 PARTIAL THROMBOPLASTIN TIME 34.0 seconds 22.5-36.0 (BEAKER) (test code = 760) RECOMMENDED COUMADIN/WARFARIN INR THERAPY RANGESSTANDARD DOSE: 2.0 - 3.0 Includes: PROPHYLAXIS for venous thrombosis, systemic embolization; TREATMENT for venous thrombosis and/or pulmonary embolus.HIGH RISK: Target INR is 2.5-3.5 for patients with mechanical heart valves.CBC W/PLT COUNT & AUTO [id number] 11:44:20 Test Item Value Reference Range Interpretation Comments WHITE BLOOD CELL COUNT (BEAKER) 10.8 K/ L 3.5-10.5 H (test code = 775) RED BLOOD CELL COUNT (BEAKER) 4.47 M/ L 4.63-6.08 L (test code = 761) HEMOGLOBIN (BEAKER) (test code = 14.2 GM/DL 13.7-17.5 410) HEMATOCRIT (BEAKER) (test code = 41.6 % 40.1-51.0 411) MEAN CORPUSCULAR VOLUME (BEAKER) 93 fL 79-92 H (test code = 753) MEAN CORPUSCULAR HEMOGLOBIN 31.8 pg 25.7-32.2 (BEAKER) (test code = 751) MEAN CORPUSCULAR HEMOGLOBIN CONC 34.1 GM/DL 32.3-36.5 (BEAKER) (test code = 752) RED CELL DISTRIBUTION WIDTH 13.3 % 11.6-14.4 (BEAKER) (test code = 412) PLATELET COUNT (BEAKER) (test 271 K/CU MM 150-450 code = 756) MEAN PLATELET VOLUME (BEAKER) 10.0 fL 9.4-12.4 (test code = 754) NUCLEATED RED BLOOD CELLS 0 /100 WBC 0-0 (BEAKER) (test code = 413) NEUTROPHILS RELATIVE PERCENT 76 % (BEAKER) (test code = 429) LYMPHOCYTES RELATIVE PERCENT 12 % (BEAKER) (test code = 430) MONOCYTES RELATIVE PERCENT 11 % (BEAKER) (test code = 431) EOSINOPHILS RELATIVE PERCENT 1 % (BEAKER) (test code = 432) BASOPHILS RELATIVE PERCENT 0 % (BEAKER) (test code = 437) NEUTROPHILS ABSOLUTE COUNT 8.20 K/ L 1.78-5.38 H (BEAKER) (test code = 670) LYMPHOCYTES ABSOLUTE COUNT 1.30 K/ L 1.32-3.57 L (BEAKER) (test code = 414) MONOCYTES ABSOLUTE COUNT (BEAKER) 1.14 K/ L 0.30-0.82 H (test code = 415) EOSINOPHILS ABSOLUTE COUNT 0.13 K/ L 0.04-0.54 (BEAKER) (test code = 416) BASOPHILS ABSOLUTE COUNT (BEAKER) 0.01 K/ L 0.01-0.08 (test code = 417) IMMATURE GRANULOCYTES-RELATIVE 0.30 % 0.00-1.00 PERCENT (BEAKER) (test code = 2801) CT, CHEST, WITHOUT IV [id number] 14:50:00Release to patient- >ImmediateWhich [facility] radiology location is preferred?->[employer] Company ID = [id number]; Insurance Company Name = [facility]; Insurance CompanyPhone Number = ; Policy Number = [id number] : 1980 Sex: MFINAL REPORT CT of the Chest dated 10/18/2022 CLINICAL INFORMATION: R59.0\\S\\Localized enlarged lymph nodes Comment: Axial images of the chest were obtained from thoracic inlet to the upper abdomen without intravenous contrast. This exam was performed according to our departmental dose-optimization program, which includes automated exposure control, adjustment of the mA and/or kV acco rding to patient size and/or use of interactive reconstruction technique. Heart is normal in size. Great vessels are unremarkable. Nonspecific subcentimeter lymph nodes are seen in the paratracheal, subcarinal, and prevascular mediastinum measuring up to 8 mm in size. Trachea and mainstem bronchi are p atent. Bronchiectasis is seen in both lungs worse in the lower lobes. Numerous reticulonodular pulmonary parenchyma, tree-in-bud, disease is seen in both lungs consistent with atypical pneumonia. No mass lesion or airspace disease is seen. No pleural effusion is seen. Visualized upper abdomen demonstrates no focal lesion. Impression: 1. Bronchiectasis.2. Bilateral reticulonodular parenchyma disease consistent with atypical pneumonia. Signed: Radha Phelps Verified Date/Time: 10/18/2022 14:50:01 Reading Location: [facility] C013Y CT Body Reading Room CULTURE + SMEAR (SPUTUM ONLY)2022-09-29 08:36:37 Test Item Value Reference Range Interpretation Comments CULTURE (BEAKER) (test No acid-fast bacilli code = 1095) isolated in 42 days AFB SMEAR (BEAKER) No acid fast bacilli (test code = 994) seen [id number] 15:03:10Medical Cytology Report Case: [id number] Authorizing Provider: Jayden Andujar MD Collected: 09/22/2022 02:59 PM Ordering Location: [facility] Received: 09/23/2022 08:47 AM Pathologist: Jorge Alberto Alba MD Specimen: Lung, Right Lower Lobe LUNG, RIGHT LOWER LOBE, BAL (CYTOSPINS): - UNSATISFACTORY: INSUFFICIENT PULMONARY ELEMENTS - Acute inflammation, reactive bronchial cells, and numerous ruba-shaped bacteria. - GMS stain is negative for Pneumocystis organisms and other fungi. - No viral incl usions are seen. Signing Pathologist Direct Phone Line: [phone] signed by Jorge Alberto Alba MD on 09/27/2022 at 3:03 PMPlease also see surgical case: [id number], and cytopathology cases: [id number], [id number], [id number], [id number] y.o. M with PMH asthma, bradycardia s/p PPM, COPD, hilar adenopathy, complete AVB s/p PPM. Pt also mentions prior episodes of intermittent hemoptysis and constant night sweats. On imaging, findings concerning for sarcoidosis.LUNG, RIGHT LOWER LOBE MARQUIS. Lung, Right Lower Lobe.Received 27.5 mls cytorich red; prepared 3 cytospins and 1 GMS stain Performed.UnsatisfactoryThe interpretation of this case included the use of immunohistochemistry or special stains.GMSControl Slides Examined: In-house known positive controls were evaluated along with the test tissue. These control slides run alongside of the patients sample show appropriate staining. Internal positive and negative controls when available are evaluated Immunohistochemistry technical testing was performed at [facility], Pathology Laboratory where it was developed and its performance characteristics were determined. It has not been cleared or approved by the U.S. Food and Drug Administration. The FDA has determined that such clearance or approval is not necessary. The testis used for clinical purposes. It should not be regarded as investigational or for research. This laboratory is certified under the Clinical Laboratory Improvement Amendments of 1988 (CLIA-88) as qualified to perform high complexity clinical laboratory testing.[facility], Department of Pathology, [address] [place] [address], [facility], [address] [place] [address], [facility], Department of [facility], [address] [place] [address] 15396, JRLU NEEDLE ASPIRATE BY [id number] 14:49:23Medical Cytology Report Case: [id number] Authorizing Provider: Jayden Andujar MD Collected: 09/22/2022 02:37 PM Ordering Location: [facility] Received: 09/23/2022 08:47 AM Pathologist: Jorge Alberto Alba MD Specimen: Lymph Node, Hilar, Right, Station 10R LYMPH NODE, RIGHT HILAR STATION 10R, EBUS FNA (CYTOSPINS AND CELL BLOCK): - NEGATIVE FOR METASTATIC CARCINOMA OR GRANULOMAS. - FRAGMENTS OF LYMPH NODE TISSUE. Signing Pathologist Direct Phone Line: [phone] signed by Jorge Alberto Alba MD on 09/27/2022 at 2:49 PMPlease also see surgical case: [id number], and cytopathology cases: [id number], [id number], [id number], [id number] y.o. M with PMH asthma, bradycardia s/p PPM, COPD, hilar adenopathy, complete AVB s/p PPM. Pt also mentions prior episodes of intermittent hemoptysis and constant night sweats. On imaging, findings concerning for sarcoidosis. LYMPH NODE, HILAR, RIGHT, STATION 10R EBUS FNAA. Lymph Node, Hilar, Right, Station 10R.Received 17.5 mls in cytorich red; prepare d 2 cytospins, cell block (A2) (cell block placed in formalin at 11:12 on 09/22/2022)Performed.[facility], Department of Pathology, [address] [place] [address], [facility], Department of Pathology, [address] [place] [address], [facility], [facility] of [facility], [address] [place] [address], EPOK NEEDLE ASPIRATE BY EBUS 2022-09-27 14:18:47Medical Cytology Report Case: [id number] Authorizing Provider: Jayden Andujar MD Collected: 09/22/2022 02:29 PM Ordering Location: [facility] Received: 09/23/2022 08:47 AM Pathologist: Jorge Alberto Alba MD Specimen: Lymph Node, Interlobar, Left, Station 11L LYMPH NODE, LEFT INTERLOBAR STATION 11L, EBUS FNA (CYTOSPINS AND CELL BLOCK): - NEGATIVE FOR METASTATIC CARCINOMA OR GRANULOMAS. - FRAGMENTS OF LYMPH NODE TISSUE. Signing Pathologist Direct Phone Line: [phone] signedby Jorge Alberto Alba MD on 09/27/2022 at 2:18 PMPlease also see surgical case: [id number], and cytopathology cases: [id number], [id number], [id number], [id number] y.o. M with PMH asthma, bradycardia s/p PPM, COPD, hilar adenopathy, complete AVB s/p PPM. Pt also mentions prior episodes of intermittent hemoptysis and constant night sweats. On imaging, findings concerning for sarcoidosis. LYMPH NODE, INTERLOBAR, LEFT, STATION 11L EBUS FNAA. Lymph Node, Interlobar, Left, Station 11L.Received 17.5 mls in cytorich red; prepared 2 cytospins, cell block (A2) (cell block placed in formalin at 11:09 on 09/23/2022)Performed.[facility], Department of Pathology, [address] [place] [address] 26[address], [facility], Department of Pathology, [address] [place] [address] 15[address], [facility]ctofRobert [facility]. [facility], Department of Pathology, [address] [place] [address] 48225, HBMA NEEDLE ASPIRATE BY [id number] 14:17:03Medical Cytology Report Case: [id number] Authorizing Provider: Jayden Andujar MD Collected: 09/22/2022 02:24 PM Ordering Location: [facility] Received: 09/23/2022 08:47 AM Pathologist: Jorge Alberto Alba MD Specimen: Lymph Node, Subcarinal, Station 7 LYMPH NODE, SUBCARINAL STATION 7, EBUS FNA(CYTOSPINS AND CELL BLOCK): - NEGATIVE FOR METASTATIC CARCINOMA OR GRANULOMAS. - FRAGMENTS OF LYMPH NODE TISSUE. Signing Pathologist Direct Phone Line: [phone] signed by Jorge Alberto Alba MD on 09/27/2022 at 2:17 PMDr. Aleah concurs with the above diagnosis. Please also see surgical case:[id number], and cytopathology cases: [id number], [id number], [id number], [id number] y.o. M with PMH asthma, bradycardia s/p PPM, COPD, hilar adenopathy, complete AVB s/p PPM. Pt also mentions prior episodes of intermittent hemoptysis and constant night sweats. On imaging, findings concerning for sarcoidosis. LYMPH NODE, SUBCARINAL, STATION 7 EBUSA. Lymph Node, Subcarinal, Station 7.Received 17.5 mls incytorich red; prepared 2 cytospins, cell block (A2) (cell block placed in formalin at 11:07 on 09/23/2022)Performed.[facility], Department of Pathology, [address] [place] [address], [facility], Department of Pathology, [address] [place] [address], [facility]ynsnvRobert F. [facility], Department of Pathology, [address] [place] [address] 037[address], HNKGZAXNE CULTURE + GRAM [id number] 08:42:13 Test Item Value Reference Range Interpretation Comments CULTURE (BEAKER) PSEUDOMONAS A 4+ Pseudomo mukesh (test code = 1095) AERUGINOSA aeruginos a Amikacin (test code See_Comment S [Automa wendi = 1) message] The system which generated this result transmitted reference range : Susceptible 0-1 6 , Resistant <0 or >16 . The reference range was not used to interpret this result as normal/abnormal . Aztreonam (test code See_Comment S [Autom ated = 32) message] The system which generated this result transmitted reference range : Susceptible 0-8 , Resistant <0 or >8 . The reference range was not used to interpret this result as normal/abnormal . Cefepime (test code See_Comment S [Automa wendi = 51) message] The system which generated this result transmitted reference range : Susceptible 0-8 , Resistant <0 or >8 . The reference range was not used to interpret this result as normal/abnormal . Ceftazidime (test See_Comment S [Automate d code = 27) message] The system which generated this result transmitted reference range : Susceptible 0-8 , Resistant <0 or >8 . The reference range was not used to interpret this result as normal/abnormal . Ciprofloxacin (test See_Comment R [Automa wendi code = 7) message] The system which generated this result transmitted reference range : Susceptible 0-0 .5 , Resistant <0 or >.5 . The reference range was not used to interpret this result as normal/abnormal . Gentamicin (test See_Comment S [Automated code = 18) message] The system which generated this result transmitted reference range : Susceptible 0-4 , Resistant <0 or >4 . The reference range was not used to interpret this result as normal/abnormal . Levofloxacin (test See_Comment R [Automat ed code = 22) message] The system which generated this result transmitted reference range : Susceptible 0-1 , Resistant <0 or >1 . The reference range was not used to interpret this result as normal/abnormal . Meropenem (test code See_Comment S [Autom ated = 34) message] The system which generated this result transmitted reference range : Susceptible 0-2 , Resistant <0 or >2 . The reference range was not used to interpret this result as normal/abnormal . Piperacillin (test See_Comment S [Automat ed code = 24) message] The system which generated this result transmitted reference range : Susceptible 0-1 6 , Resistant <0 or >16 . The reference range was not used to interpret this result as normal/abnormal . Piperacillin + See_Comment S [Automated Tazobactam (test message] Th e code = 29) system which generated this result transmitted reference range : Susceptible 0-1 6 , Resistant <0 or >16 . The reference range was not used to interpret this result as normal/abnormal . Tobramycin (test See_Comment S [Automated code = 25) message] The system which generated this result transmitted reference range : Susceptible 0-4 , Resistant <0 or >4 . The reference range was not used to interpret this result as normal/abnormal . GRAM STAIN RESULT 4+ WBCs (BEAKER) (test code = 1123) GRAM STAIN RESULT 2+ gram negative (BEAKER) (test code rods = 794366) 1+ Normal respiratory lore presentTISSUE [id number] 15:53:23Surgical Pathology Report Case: [id number] Authorizing Provider: Jayden Andujar MD Collected: 09/22/2022 02:44 PM Ordering Location: [facility] Received: 09/22/2022 04:49 PM Pathologist: John Padilla MD Specimen: Lung, Right Lower Lobe, transbronchial bx A. LUNG, RIGHT LOWER LOBE, TRANSBRONCHIAL BIOPSY: - UNREMARKABLE LUNG PARENCHYMA WITH NO SIGNIFICANT DIAGNOSTIC ABNORMALITY - NEGATIVE FOR GRANULOMAS OR MALIGNANCY - DEEPER LEVELS EXAMINED Signing Pathologist Direct Phone Line: [phone] signed by John Padilla MD on 09/24/2022 at 3:53 PMClinical and radiologic correlation is recommended to determine if the tissue sampled is consumer sales representative of the lesion. Repeat biopsy may be considered if clinically feasible.Please refer to concurrently acquired cytologyspecimens for further correlation.[id number] chest showed extensive focal and confluent nodular opacities in bibasilar distribution with multiple mediastinal and hilar lymph nodes concerning for sarcoidosis. He was admitted and evaluated by pulmonary service. Based on images, he was felt to likely have sarcoidosis. A. Lung, Right Lower Lobe.Received in formalin labeled with the patient's name, medical record number and "lung, right lower lobe" are multiple johnson-pink irregular soft tissue fragments (0.3 x 0.2 x 0.2 cm in aggregate). The specimen is submitted in toto in A1, specimen may not survive processing.DURGA Quinones StudentPerformed.The interpretation of this case included the use of immuno histochemistry or special stains.Control Slides Examined: In-house known positive controls were evaluated along with the test tissue. These control slides run alongside of the patients sample show appropriate staining. Internal positive and negative controls when available are evaluated Immunohistochemistry technical testing was performed at [facility], Pathology Laboratory where it was developed and its performance characteristics were determined. It has not been cleared or approved by the U.S. Food and Drug Administration. The FDA has determined that such clearance or approval is not necessary. The test is used for clinical purposes. It should not be regarded as investigational or for research. This laboratory is certified under the Clinical Laboratory Improvement Amendments of 1988 (CLIA-88) as qualified to perform high complexity clinical laboratory testing.CYTOLOGY [id number] 10:04:34 Test Item Value Reference Range Interpretation Comments CYTOLOGY RESULT POINTER See Separate Report (BEAKER) (test code = 2629) EBUS FNA [id number] 10:04:34 Test Item Value Reference Range Interpretation Comments CYTOLOGY RESULT POINTER See Separate Report (BEAKER) (test code = 2629) EBUS FNA [id number] 10:04:34 Test Item Value Reference Range Interpretation Comments CYTOLOGY RESULT POINTER See Separate Report (BEAKER) (test code = 2629) EBUS FNA [id number] 10:04:22 Test Item Value Reference Range Interpretation Comments CYTOLOGY RESULT POINTER See Separate Report (BEAKER) (test code = 2629) RAD, CHEST, 1 VIEW, NON [id number] 06:39:00Reason for exam:->Post bronch biopsyShould this be performed at the bedside?->Yes [facility] 1980 Sex: MFINAL REPORT RAD, CHEST, 1 VIEW, NON DEPT CLINICAL HISTORY: Post bronch biopsy TECHNIQUE: Single view of the chest. COMPARISON: July 2022 IMPRESSION: Development of bilateral patchy airspace opacities possibly multifocal pneumonia or edema but nonspecific. Left chest pacer device is stable. Cardiomediastinal silhouette is unremarkable for AP technique. No pneumothorax or large effusion. Stable osseous structures. Signed: Thomas Schilling MDReport Verified Date/Time: 09/23/2022 06:39:52 SPIN/CONCENTRATION CHARGE 2022-09-23 01:54:20 Test Item Value Reference Range Interpretation Comments CONCENTRATION CHARGED (BEAKER) (test Done code = 2657) BODY FLUID CELL COUNT WITH [id number] 17:26:55 Test Item Value Reference Range Interpretation Comments APPEARANCE FLUID Turbid Clear A (BEAKER) (test code = 510) COLOR FLUID (BEAKER) Colorless Colorless, Straw (test code = 511) RBC FLUID (BEAKER) 307 /cu mm See_Comment H [Automat ed message] (test code = 513) The system which generated this result transmit wendi reference range : <=1. The refere nce range was not u sed to interpret th is result as normal/abnormal . TOTAL NUCLEATED CELL 3652 /cu mm See_Comment H [Autom ated message] COUNT (BEAKER) (test The sys tem which code = 1442) generated this result transmit wendi reference range : <=5. The refere nce range was not u sed to interpret th is result as normal/abnormal . LINING CELLS/OTHERS 0 DIFF'D (BEAKER) (test code = 1589) ADJUSTED WBC FLUID 3652 /cu mm See_Comment H [Automat ed message] (BEAKER) (test code = The sy stem which 1691) generated this result transmit wendi reference range : <=5. The refere nce range was not u sed to interpret th is result as normal/abnormal . LINING CELLS/OTHERS, 0 /cu mm See_Comment [Autom ated message] CALCULATED (BEAKER) The syst em which (test code = 1590) generated this result transmit wendi reference range : <=1. The refere nce range was not u sed to interpret th is result as normal/abnormal . NEUTROPHILS FLUID 2 % (BEAKER) (test code = 4136) LYMPHS FLUID (BEAKER) 4 % (test code = 488) MONO/MACROPHAGE FLUID 0 % (BEAKER) (test code = 489) EOSINOPHILS FLUID 0 % (BEAKER) (test code = 491) BASO FLUID (BEAKER) 0 % (test code = 492) CONTAINER BODY FLUID EDTA Tube (BEAKER) (test code = 2873) FL, FLUORO, NON-SPECIFIC, UP TO 1 [id number] 14:55:00Reason for exam:- >Abnormal CT [facility] 1980 Sex: MAn imaging unit was utilized for this procedure. No radiologist interpretation was requested. Refer tot EMR for findings. Refer to PACS for any patient radiation dose information.SPIN/CONCENTRATION [id number] 09:27:17 Test Item Value Reference Range Interpretation Comments CONCENTRATION CHARGED ([employer] (test Done code = 2657) POCT-GLUCOSE [id number] 10:57:27 Test Item Value Reference Range Interpretation Comments POC-GLUCOSE METER 129 mg/dL 70-110 H : TESTED A T [facility] 6720 ([employer] (test code = YOUNG Lyons [facility], 1538) [address]: Bridge Inspector/Techni yamini ID = [id number] for SINDY RASMUSSEN HIV-1 ANTIGEN WITH HIV-1/2 [id number] 07:05:49 Test Item Value Reference Range Interpretation Comments HIV-1 ANTIGEN WITH HIV 1\\T\\2 Nonreactive Nonreactive ANTIBODY (2) ([employer] (test code = 2586) Bridge Inspector ID - MITCHC-REACTIVE [id number] 06:59:40 Test Item Value Reference Range Interpretation Comments C-REACTIVE PROTEIN ([employer] (test 4.06 mg/dL 0.00-0.50 H code = 676) Bridge Inspector ID - MITCHSARS-COV2/INFLUENZA/RSV [id number] 00:45:29 Test Item Value Reference Range Interpretation Comments SARS-COV2/RT-PCR Negative Negative The SARS-Co V-2 target (test code = nucleic acids a re not 0119213) detected in thi s specimen. Negat ann results do not preclude SARS-CoV-2 infe ction and should not be u sed as the sole basis for patient management deci sions. Negative result s must be combined with c linical observations, p atient history, and epidemiological information. A false negative result may occur if a specimen i s improperly eliud ected, transported or handled. This SARS CoV-2 test is a rapid, real-preet e RT-PCR test intended f or the qualitative det ection of nucleic acid fr om SARS-CoV-2 in a nasopharyngeal swab specimen collec wendi from individuals dhruv pected of COVID-19 by the [facility]. INFLUENZA A RT-PCR Negative Negative The Flu A target nucleic (test code = acids are not d etected in 2561629) this specimen. INFLUENZA B RT-PCR Negative Negative The Flu B target nucleic (test code = acids are not d etected in 7595361) this specimen. RSV RT-PCR (test Negative Negative The RSV tar get nucleic code = 4977961) acids are no t detected in this specimen. The presence of SARS-CoV-2/FLU/RSV viral nucleic acids cannot rule out co- infections or disease caused by other viral or bacterial pathogens. As with any molecular test, mutations within the target regions of the Xpert Xpress SARS-CoV-2/Flu/RSV test could affect primer and/or probe binding resulting in failure to detect the presence of virus or the virus being detected less predictably. False negative results may occur if the virus is present at levels below the analytical limit of detection in thisspecimen.This Xpert Xpress SARS-CoV-2/Flu/RSV test is a rapid, real-time RT-PCR test intended for the qualitative detection of nucleic acid from Xpert Xpress SARS-CoV-2/Flu/RSV in a nasopharyngeal swabspecimen collected from individuals suspected of Xpert Xpress SARS-CoV-2/Flu/RSV by their healthcareprovider. Results from lance Xpert Xpress SARS-CoV-2/Flu/RSV test should be correlated with the clinical history, epidemiological data, and other data available to the clinician evaluating the patient. Viral nucleic acid may persist in vivo, independent of virus viability. Detection of analyte target(s)does not imply that the corresponding virus(es) are infectious or are the causative agents for clinical symptoms.This test has not been Food and Drug Administration (FDA) cleared or approved and has been authorized by FDA under an Emergency Use Authorization (EUA). This EUA will be effective until thedeclaration that circumstances exist justifying the authorization of the emergency use of in vitro diagnostic tests for detection and/or diagnosis of COVID-19 is terminated under Section 564(b)(2) of the Act or the EUA is revoked under Section 564(g) of the Act.Fact Sheet for Healthcare Providers:https ://www.[employer]/Documents/Xpert%20Xpress%20SARS%20CoV-2/Fact%20Sheets/302-390 2%12VYUC-DXZ-1%20HEALTHCARE%20PROVIDERS%20FACT%20SHEET.pdfFact Sheet for Healthcare Patients:https://www.[employer]/Docum ents/Xpert%20Xpress%20SARS%20Cov-2/Fact%20Sheets/302-3801%55RGFI-VMO-7%20PATIENT %20FACT%20SHEET.pdfB-TYPE NATRIURETIC FACTOR (BNP)2022-08-10 23:55:57 Test Item Value Reference Range Interpretation Comments B-TYPE NATRIURETIC PEPTIDE (BEAKER) 56 pg/mL 0-100 (test code = 700) Bridge Inspector ID - BSHIGH SENSITIVITY TROPONIN [id number] 23:55:38 Test Item Value Reference Range Interpretation Comments HIGH SENSITIVITY < pg/ml See_Comment [Automated message] TROPONIN I (test code = The system which [id number]) generated this result transmitted ref erence range: <=35. Th e reference range was not used to interpr et this result as normal/abnormal . Bridge Inspector ID - BSThe FIRE CONTROLMAN STAT High Sensitivity Troponin-I results should be used in conjunctionwith other diagnostic information such as ECG, clinical observations and information, and patient symptoms to aid in the diagnosis of ME.COMPREHENSIVE METABOLIC [id number] 23:51:40 Test Item Value Reference Range Interpretation Comments TOTAL PROTEIN 6.4 gm/dL 6.0-8.3 (BEAKER) (test code = 770) ALBUMIN (BEAKER) 3.2 g/dL 3.5-5.0 L (test code = 1145) ALKALINE 47 U/L 40-150 PHOSPHATASE (BEAKER) (test code = 346) BILIRUBIN TOTAL 0.3 mg/dL 0.2-1.2 (BEAKER) (test code = 377) SODIUM (BEAKER) 137 meq/L 136-145 (test code = 381) POTASSIUM (BEAKER) 3.3 meq/L 3.5-5.1 L (test code = 379) CHLORIDE (BEAKER) 105 meq/L 98-107 (test code = 382) CO2 (BEAKER) (test 22 meq/L 22-29 code = 355) BLOOD UREA 19 mg/dL 7-21 NITROGEN (BEAKER) (test code = 354) CREATININE 0.93 mg/dL 0.57-1.25 (BEAKER) (test code = 358) GLUCOSE RANDOM 193 mg/dL 70-105 H (BEAKER) (test code = 652) CALCIUM (BEAKER) 8.5 mg/dL 8.4-10.2 (test code = 697) AST (SGOT) 33 U/L 5-34 (BEAKER) (test code = 353) ALT (SGPT) 48 U/L 6-55 (BEAKER) (test code = 347) EGFR (BEAKER) 108 Interpretatio n of eGFR (test code = 1092) mL/min/1.[address] age Description sq m Result G1 Mary l or high >=90 G2 Mildly decreased 60-89 G3a Mildl y to moderately 45-5 9 G3b Moderately to s everely 30-44 G4 Severl y decreased 15-29 G5 Kidney failure <15Reported eGF R is based on the CKD-EPI 2021 equation that d oes not use a race coefficientEsti mated GFR is not as accur ate as Creatinine Shelly whelan in predicting glom erular filtration rate . Estimated GFR is not appl icable for dialysis patien ts Bridge Inspector ID - BSCBC W/PLT COUNT & AUTO [id number] 23:13:12 Test Item Value Reference Range Interpretation Comments WHITE BLOOD CELL COUNT (BEAKER) 11.4 K/ L 3.5-10.5 H (test code = 775) RED BLOOD CELL COUNT (BEAKER) 4.59 M/ L 4.63-6.08 L (test code = 761) HEMOGLOBIN (BEAKER) (test code = 14.4 GM/DL 13.7-17.5 410) HEMATOCRIT (BEAKER) (test code = 42.5 % 40.1-51.0 411) MEAN CORPUSCULAR VOLUME (BEAKER) 93 fL 79-92 H (test code = 753) MEAN CORPUSCULAR HEMOGLOBIN 31.4 pg 25.7-32.2 (BEAKER) (test code = 751) MEAN CORPUSCULAR HEMOGLOBIN CONC 33.9 GM/DL 32.3-36.5 (BEAKER) (test code = 752) RED CELL DISTRIBUTION WIDTH 13.2 % 11.6-14.4 (BEAKER) (test code = 412) PLATELET COUNT (BEAKER) (test 376 K/CU MM 150-450 code = 756) MEAN PLATELET VOLUME (BEAKER) 10.0 fL 9.4-12.4 (test code = 754) NUCLEATED RED BLOOD CELLS 0 /100 WBC 0-0 (BEAKER) (test code = 413) NEUTROPHILS RELATIVE PERCENT 83 % (BEAKER) (test code = 429) LYMPHOCYTES RELATIVE PERCENT 8 % (BEAKER) (test code = 430) MONOCYTES RELATIVE PERCENT 7 % (BEAKER) (test code = 431) EOSINOPHILS RELATIVE PERCENT 0 % (BEAKER) (test code = 432) BASOPHILS RELATIVE PERCENT 0 % (BEAKER) (test code = 437) NEUTROPHILS ABSOLUTE COUNT 9.45 K/ L 1.78-5.38 H (BEAKER) (test code = 670) LYMPHOCYTES ABSOLUTE COUNT 0.86 K/ L 1.32-3.57 L (BEAKER) (test code = 414) MONOCYTES ABSOLUTE COUNT (BEAKER) 0.76 K/ L 0.30-0.82 (test code = 415) EOSINOPHILS ABSOLUTE COUNT 0.00 K/ L 0.04-0.54 L (BEAKER) (test code = 416) BASOPHILS ABSOLUTE COUNT (BEAKER) 0.04 K/ L 0.01-0.08 (test code = 417) IMMATURE GRANULOCYTES-RELATIVE 2.30 % 0.00-1.00 H PERCENT (BEAKER) (test code = 2801) RAD, CHEST, 1 VIEW, NON [id number] 22:31:00Reason for exam:->SHORTNESS OF BREATHReason for exam:->CHEST PAINShould this be performed at the bedside?->Yes[facility] 1980 Sex: MFINAL REPORT Chest, one view History: Chest pain and shortness of breath Comparison: none Findings:Clear lungs. Heart is normal in size. Dual-lead cardiac pacer in place. No pleural effusion or pneumothorax. Impression:No acute findings in the chest Signed: [facility] Verified Date/Time: 08/10/2022 22:31:07
[2023-07-04] MEDS ORDERED: predniSONE 20 MG TAB ONE (16:37)
--- NOTE | 2023-07-04 16:54 | RAD REPORT ---
EXAM DESCRIPTION: Taryn Single View07/04/2023 4:34 pm CLINICAL HISTORY: cough COMPARISON: none FINDINGS: The lungs appear clear of acute infiltrate. The heart is normal size Pacemaker lead may lie within the right ventricle
[2023-07-04 17:21] LABS: SARS-COV-2 RT PCR NEGATIVE (NEGATIVE)
--- NOTE | 2023-07-04 17:57 | EDPHYS ---
Physician Documentation [facility] Name: Raghu Rodriguez Age: 42 yrs Sex: Male : 1980 Arrival Date: 07/04/2023 Time: 16:03 Bed 10 Private MD: ED Physician Charly Membreno HPI: 07/04 16:27 This 42 yrs old Male presents to ER via Ambulatory with complaints of Flu Symptoms. kb 16:27 Patient is a 42-year-old male with a history of asthma who presents for cough, kb congestion, fever, chills, body aches, shortness of breath that started this morning.. Historical: - Allergies: 16:31 PENICILLINS; cm10 16:31 Ciprofloxacin; cm10 - PMHx: 16:14 Asthma; hb - PSHx: 16:14 pacemaker; hb - Immunization history:: Adult Immunizations up to date. - Social history:: Smoking status: Patient denies any tobacco usage or history of. ROS: 16:27 Abdomen/GI: Negative for abdominal pain, nausea, vomiting, diarrhea, and constipation, kb 16:27 Constitutional: Positive for body aches, chills, fatigue, fever, malaise, 16:27 ENT: Positive for rhinorrhea, sinus congestion, 16:27 Respiratory: Positive for cough, shortness of breath, wheezing, 16:27 All other systems are negative, Exam: 16:27 Constitutional: This is a well developed, well nourished patient who is awake, alert, kb and in no acute distress. Head/Face: Normocephalic, atraumatic. ENT: Moist Mucous membranes Cardiovascular: Regular rate Abdomen/GI: Soft, non-tender. No distention Skin: Warm, dry with normal turgor. Normal color. MS/ Extremity: Pulses equal, no cyanosis. Neurovascular intact. Full, normal range of motion. Neuro: Awake and alert, GCS 15, oriented to person, place, time, and situation. Moves all extremities. Normal gait. 16:27 Respiratory: the patient does not display signs of respiratory distress, Respirations: normal, Breath sounds: wheezing: expiratory that is moderate, is scattered, Vital Signs: 16:13 BP 140 / 87; Pulse 73; Resp 20; Temp 99.7(O); Pulse Ox 96% on R/A; Weight 72.57 kg; hb Height 5 ft. 11 in. ; Pain 6/10; 16:13 Body Mass Index 22.32 (72.57 kg, 180.34 cm) hb 16:13 Pain Scale: Adult hb MDM: 16:06 Patient medically screened. kb 16:32 Differential Diagnosis: Bronchitis Influenza Upper Respiratory Infection Pneumonia kb Other covid. Data reviewed: vital signs, nurses notes. 17:56 Counseling: I had a detailed discussion with the patient and/or guardian regarding the kb historical points, exam findings, and any diagnostic results supporting the discharge/admit diagnosis, lab results, radiology results, the need for outpatient follow up, a family practitioner, to return to the emergency department if symptoms worsen or persist or if there are any questions or concerns that arise at home. 07/04 16:12 Order name: COVID-19/FLU A+B/RSV; Complete Time: 17:21 kb 07/04 16:12 Order name: Chest Single View XRAY; Complete Time: 17:00 kb Administered Medications: 16:31 Drug: DuoNeb Nebulize (3:1) (2.5 mg - 0.5 mg) 3 ml Nebulizer once Route: Nebulizer; cm10 16:56 Follow up: Response: No adverse reaction cm10 16:31 Drug: predniSONE PO 60 mg PO once Route: PO; cm10 16:56 Follow up: Response: No adverse reaction cm10 Disposition: 17:44 I was immediately available on-site in the Emergency Department for consultation in the ms3 care of the patient. Disposition Summary: 07/04/23 17:57 Discharge Ordered Notes: Location: Home kb Condition: Stable kb Diagnosis - Cough kb - Fever, unspecified kb Followup: kb - With: Emergency Department - When: As needed - Reason: Worsening of condition Followup: kb - With: Private Physician - When: 2 - 3 days - Reason: Recheck today's complaints, Continuance of care, Re-evaluation by your physician Discharge Instructions: - Discharge Summary Sheet kb - Cough, Adult, [id number] kb - Fever, Adult, [id number] kb Forms: - Medication Reconciliation Form kb - Thank You Letter kb - Antibiotic Education kb - Prescription Opioid Use kb - Patient Portal Instructions kb - Leadership Thank You Letter kb Prescriptions: - albuterol sulfate 90 mcg/actuation Inhalation HFA Aerosol Inhaler - inhale 2 puff INHALATION route every 4-6 hours As needed; 1 unit; Refills: 0, kb Product Selection Permitted - Prednisone 20 mg Oral Tablet - take 1 tablet ORAL route once daily for 5 days; 5 tablet; Refills: 0, Product kb Selection Permitted - Zithromax 500 mg Oral Tablet - take 1 tablet ORAL route once daily for 5 days; 5 tablet; Refills: 0, Product kb Selection Permitted Signatures: Dispatcher [employer] Chula Clarke, YOUTH ADVOCATE-C YOUTH ADVOCATE-Nadya Brown, RN RN Charly Membreno DO DO ms3 Katerina Hair RN RN cm10 Corrections: (The following items were deleted from the chart) 16:31 16:14 Allergies: No Known Allergies; cm10
--- NOTE | 2023-07-04 17:57 | ER ---
Nurse's Notes [facility] Name: Raghu Rodriguez Age: 42 yrs Sex: Male : 1980 Arrival Date: 07/04/2023 Time: 16:03 Bed 10 Private MD: Diagnosis: Cough;Fever, unspecified Presentation: 07/04 16:13 Chief complaint: Cough, congestion, body aches, N/V x 3-4 days. Coronavirus screen: hb Client presents with at least one sign or symptom that may indicate coronavirus-19. Provider contacted for isolation considerations. Ebola Screen: No symptoms or risks identified at this time. Initial Sepsis Screen: Does the patient meet any 2 criteria? No. Patient's initial sepsis screen is negative. Does the patient have a suspected source of infection? No. Patient's initial sepsis screen is negative. Risk Assessment: Do you want to hurt yourself or someone else? Patient reports no desire to harm self or others. Onset of symptoms was June 30, 2023. 16:13 Method Of Arrival: Ambulatory 16:13 Acuity: JAYME 4 Triage Assessment: 17:19 General: Appears in no apparent distress. comfortable, Behavior is calm, cooperative. cm10 Pain: Complains of pain in generalized body aches. EENT: No deficits noted. Reports nasal congestion. Neuro: No deficits noted. Allen Agitation-Sedation Scale (RASS): 0 - Alert and Calm Level of Consciousness is awake, alert, obeys commands, Oriented to person, place, time, situation. Cardiovascular: No deficits noted. Patient's skin is warm and dry. Respiratory: No deficits noted. Reports cough that is Airway is patent Respiratory effort is even, unlabored, Respiratory pattern is regular, symmetrical. GI: No deficits noted. No signs and/or symptoms were reported involving the gastrointestinal system. : No deficits noted. No signs and/or symptoms were reported regarding the genitourinary system. Derm: No deficits noted. No signs and/or symptoms reported regarding the dermatologic system. Skin is intact, Skin is pink, warm \T\ dry. Musculoskeletal: No deficits noted. Range of motion: intact in all extremities. Historical: - Allergies: 16:31 PENICILLINS; cm10 16:31 Ciprofloxacin; cm10 - PMHx: 16:14 Asthma; hb - PSHx: 16:14 pacemaker; hb - Immunization history:: Adult Immunizations up to date. - Social history:: Smoking status: Patient denies any tobacco usage or history of. Screenin:20 [facility] ED Fall Risk Assessment (Adult) History of falling in the last 3 months, cm10 including since admission No falls in past 3 months (0 pts) Confusion or Disorientation No (0 pts) Intoxicated or Sedated No (0 pts) Impaired Gait No (0 pts) Mobility Assist Device Used No (0 pt) Altered Elimination No (0 pt) Score/Fall Risk Level 0 - 2 = Low Risk Oriented to surroundings, Maintained a safe environment, Hourly rounding (assess needs \T\ fall precautionary measures) done. Abuse screen: Denies threats or abuse. Denies injuries from another. Nutritional screening: No deficits noted. Tuberculosis screening: No symptoms or risk factors identified. Assessment: 17:21 Reassessment: Patient appears in no apparent distress at this time. Patient and/or cm10 family updated on plan of care and expected duration. Pain level reassessed. Patient is alert, oriented x 3, equal unlabored respirations, skin warm/dry/pink. Vital Signs: 16:13 BP 140 / 87; Pulse 73; Resp 20; Temp 99.7(O); Pulse Ox 96% on R/A; Weight 72.57 kg; hb Height 5 ft. 11 in. ; Pain 6/10; 16:13 Body Mass Index 22.32 (72.57 kg, 180.34 cm) hb 16:13 Pain Scale: Adult hb ED Course: 16:05 Patient arrived in ED. rg4 16:05 Chula Foley FNP-C is [facility]. kb 16:06 Charly Membreno DO is Attending Physician. kb 16:14 Triage completed. hb 16:14 Arm band placed on. hb 16:31 COVID-19/FLU A+B/RSV Sent. cm10 16:36 Chest Single View XRAY In Process Unspecified. EDMS 17:20 Patient has correct armband on for positive identification. Bed in low position. Call cm10 light in reach. Provided Education on: ER process and procedures.. 17:21 No provider procedures requiring assistance completed. Patient did not have IV access cm10 during this emergency room visit. Administered Medications: 16:31 Drug: DuoNeb Nebulize (3:1) (2.5 mg - 0.5 mg) 3 ml Nebulizer once Route: Nebulizer; cm10 16:56 Follow up: Response: No adverse reaction cm10 16:31 Drug: predniSONE PO 60 mg PO once Route: PO; cm10 16:56 Follow up: Response: No adverse reaction cm10 Medication: 17:20 VIS not applicable for this client. cm10 Outcome: 17:57 Discharge ordered by MD. ocampo 18:21 Discharged to home ambulatory, with significant other, cm10 18:21 Condition: good 18:21 Discharge instructions given to patient, Instructed on discharge instructions, follow up and referral plans. medication usage, Demonstrated understanding of instructions, follow-up care, medications, Prescriptions given X 3, 18:22 Patient left the ED. cm10 Signatures: Dispatcher [employer] EDMS Chula Foley, METEOROLOGIST IN CHARGE-C METEOROLOGIST IN CHARGE-Nadya Brown, RN RN Krys Kyle4 Katerina Hair RN RN cm10 Corrections: (The following items were deleted from the chart) 16:31 16:14 Allergies: No Known Allergies; cm10
[2023-07-04 18:40] VITALS: BP 140/87; TEMP 99.7; O2SAT 96
== END 2023-07-04 18:22 | disposition home or self-care (01) ==
LOC: ER 16:03
DX: R50.9 Fever, unspecified (principal); R05.9 Cough, unspecified; J45.909 Unspecified asthma, uncomplicated; Z11.52 Encounter for screening for COVID-19; Z88.0 Allergy status to penicillin; Z88.1 Allergy status to other antibiotic agents; Z95.0 Presence of cardiac pacemaker
CPT/HCPCS: 0241U; 71045; 94640; 99284; J7512